=== PATIENT | male | born 1945 | race Caucasian/White ===

== ENCOUNTER 2018-06-16 06:16 | Inpatient (IN) | payer OTHER ==
[2018-06-16] MEDS ORDERED: FAMOTIDINE 20 MG TAB PO ONE (06:18)
[2018-06-16] MEDS ORDERED: ASPIRIN EC 325 MG TAB PO ONE ×2 (06:18→06:37)
[2018-06-16] MEDS ORDERED: DIAZEPAM 5 MG TAB PO ONE ×2 (06:18→06:37)
[2018-06-16] MEDS ORDERED: diphenhydrAMINE 25 MG CAP PO ONE (06:18)
[2018-06-16] MEDS ORDERED: NS 1,000 ML IV ONE (06:18)
[2018-06-16] MEDS ORDERED: FAMOTIDINE 20 MG/NACL 50 ML IV ONE (06:37)
[2018-06-16] MEDS ORDERED: methylPREDNISolone SOD SUCC 125 MG/2 ML VIAL IVP ONE (06:37)
[2018-06-16 06:58] LABS: PLATELET COUNT 166 10^3/uL (150-400)
[2018-06-16 07:06] LABS: INR 1.12 (0.83-1.16)
[2018-06-16] MEDS ORDERED: LIDOCAINE 1% 300 MG/30 ML SDV ONE (08:05)
[2018-06-16] MEDS ORDERED: fentaNYL 100 MCG/2 ML INJ ONE (08:06)
[2018-06-16] MEDS ORDERED: MIDAZOLAM 2 MG/2 ML VIAL ONE (08:06)
[2018-06-16] MEDS ORDERED: IOPAMIDOL (ISOVUE-370) 150 ML BTL IV ONE (08:06)
--- NOTE | 2018-06-16 08:15 | PDPROPOC ---
Sedation Plan of Care Sedation Plan of Care: vital signs stable, mental status noted, patient educated of risks, benefits, alternatives, patient can tolerate sedation ASA Classification: ASA 2 Planned drugs: fentanyl, midazolam Mallampati Score: Class 1 Mallampati Reference Image: Patient passed 3-3-2 rule?: Yes
--- NOTE | 2018-06-16 08:15 | PDHPUP ---
History & Physical Update H&P update statement: This history and physical update is based on an assessment of the patient which was completed after admission or registration (within 24 hours), but prior to the surgery/procedure. H&P update: H&P reviewed & patient examined, no change in patient's condition since H&P completed
[2018-06-16] MEDS ORDERED: VERAPAMIL 5 MG/2 ML VIAL ONE (08:16)
[2018-06-16] MEDS ORDERED: HEPARIN 10,000 UNIT/10 ML MDV (1,000 UNIT/ML) ONE (08:16)
[2018-06-16] MEDS ORDERED: ONDANSETRON 4 MG/2 ML VIAL ONE (08:24)
[2018-06-16] MEDS ORDERED: ADENOSINE 90 MG/30 ML VIAL IV ONE (08:55)
--- NOTE | 2018-06-16 09:21 | PDDXCAT ---
Diagnostic Cath Note - . Date: 06/16/18 Industrial Rehabilitation Consultant: Roque Avian Keeper: Roque Indication: Class I/II angina, intolerance to med therapy or failure to respond , other (ANGINAL EQUIVALENT. ct SCAN WITH cad) - Procedure Access: right wrist Procedure: left heart catheterization, coronary angiography, left ventriculogram - Materials Left Heart Cath size: 5F Left Heart Cath materials: JL3.5, pigtail, other ([place] 4) - Findings-Left Heart Catheterization LM: 65% distal LM LAD: Large vessel reaching to the apex. Unobstructed with mild luminal irregularities. LCX: Unobstructed RCA: Dominant. Tortuous. Ramus: Large EDP: 18 mmhg LVEF: 60 Wall motion: normal Complications: FORARM HEMATOMA, CONTROLLED WITH BLOOD PRESSURE CUFF. Estimated blood loss: <50ml Closure method: TR Band Assessment: Distal left main CAD. Indeterminant in some views. Normal LV systolic function. Plan: FFR of the Left main Intervention: Procedure : FFR of the left main. Therapeutic ACT was confirmed. Left main was cannulated with a 5 estonian JL 3.5 guide. A FFR wire was passed into the ramus intermedius. Standing FFR was .89. Injection of the coronary showed a drop in FFR to .86. Administration of adenosine at 140 ucg/kg/min showed a drop to .79 Conclusion: Flow limiting distal left main coronary artery disease. Films reviewed with Dr. Terry of surgery and Dr. Shirley. Recommend three vessel CABG.
[2018-06-16] MEDS ORDERED: MUPIROCIN 2% 22 GM OINT NS ONE (11:06)
--- NOTE | 2018-06-16 13:55 | PDCONSULT ---
Zumba Instructor Note: INDICATION FOR CTS CONSULTATION: Severe coronary artery disease including the left main REQUESTING PHYSICIAN FOR CONSULTATION: Dr. Nevarez HISTORY OF PRESENT ILLNESS: This is a 72M with known CAD who underwent elective LHC today with Dr. Nevarez which demonstrated flow limiting LM disease. He has been having worsening SOB at rest the past few weeks. Associated symptoms include fatigue and malaise. No over chest pain. He had a recent 3-week automobile trip where he developed unilateral ankle edema and pain. This has since resolved. No chest or vein surgery. 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 PHYSICAL EXAMINATION: GENERAL APPEARANCE: NAD, in bed HEENT: NCAT, MMM, neck supple, trachea midline, no mass RESPIRATORY: CTAB, no wheezes CARDIAC: s1s2, RRR, no m/r/g, no edema b/l, radial splint ABDOMEN: obese, soft, nontender SKIN: warm and dry NEURO: no gross defect, sensation intact PSYCH: answers questions appropriately, thoughts linear LABORATORY STUDIES: CBC, CMP, PT/INR, A1c reviewed in [facility] and unremarkable DIAGNOSTICS: [facility] 06/16 LM: 65% distal LM LAD: Large vessel reaching to the apex. Unobstructed with mild luminal irregularities. LCX: Unobstructed RCA: Dominant. Tortuous. Ramus: Large EDP: 18 mmhg LVEF: 60 TTE 06/16 - ordered, pending CUS 06/16 - no significant stenosis CXR 06/16 - WNL ASSESSMENT: Severe coronary artery disease including flow limiting distal LM disease Recent unilateral edema/swelling associated with immobility concerning for LLE DVT Hypertension Hyperlipidemia PLAN: Urgent myocardial revascularization with endoscopic vein harvesting 06/17/18 Risks, benefits, and alternatives discussed with patient/ Pre-ops placed, pending TTE, Doppler US LLE r/o chronic DVT
--- NOTE | 2018-06-16 16:09 | ECHO ---
[email or web address] [address] Main: [phone] Echocardiography Examination Transthoracic Name: SHANTA VIRAMONTES MR#: [id number] Study Date: 06/16/2018 Study Time: 03:20 PM Date of : 1945 Age: 72 year(s) Height: 190.5 cm (75 in.) Weight: 114.76 kg (253 lb.) BSA: 2.42 m2 Gender: Male Examination: Echo Contrast: Image Quality: Adequate Rhythm: Heart Rate: BP: 120 mmHg/78 mmHg Indication: Pre OP OHS TTE Procedure Staff Referring Physician: Grubber: Ashanti Toro [facility] Reading Physician: Miles López MD Requesting Provider: Ordering Physician: Charly Hood Indication: Pre OP OHS TTE Measurements Chambers AV/MV Label Value Normal Value Label Value Normal Value LVOTd 2 cm (1.9cm - 2.1cm) AV PGmax 10 mmHg LVOT VTI 18.8 cm (18cm - 22cm) AV PGmean 6 mmHg LVDd, 2D 4.8 cm (4.2cm - 5.9cm) AV Vmax 1.55 m/s LVDs, 2D 3 cm (2.1cm - 4cm) KATIE (VTI) 2.1 cm2 IVSd, 2D 1.4 cm (0.6cm - 1.1cm) MV E Vmax 0.64 m/s LVPWd, 2D 1.3 cm (0.6cm - 1cm) MV A Vmax 0.99 m/s LVEF, 2D 66 % (54% - 74%) MV E/A 0.65 LVOT PGmean 2 mmHg MV E/E' lateral 6.7 LVOT Vmean 0.68 m/s MV E/E' septal 10.9 (0.45 - 1.25) RVDd, 2D 3.7 cm (1.9cm - 3.8cm) MV DT 282 ms LA Volume, BP 34 ml (18ml - 58ml) MV E' septal 0.06 m/s LADs, 2D 3.3 cm (3cm - 4cm) MV PHT 0.1 s LAESV index, BP 14 ml/m2 MVA PHT 2.3 cm2 RA Area 14.9 cm2 MV E' lateral 0.09 m/s Additional Vessels MV E/E' mean 8.53 Label Value Normal Value MV PHT 95 ms AoAsc 3.2 cm MV E' mean 0.08 m/s AoRoot, 2D 3 cm (1.4cm - 2.6cm) TV/PV Label Value Normal Value Patient: SHANTA VIRAMONTES Study Date: 06/16/2018 Page 1 of 3 03:20 PM RA Pressure 5 mmHg RVSP 22 mmHg TR Pmax 17 mmHg TR Vmax 2.05 m/s PV PGmax 3 mmHg PV Vmax, Caliper 0.87 m/s (0.6m/s - 0.9m/s) Conclusions 1. The left ventricle is normal in size with mild concentric left ventricular hypertrophy. The ejection fraction is estimated at 55-60%. 2. The aortic valve is trileaflet. There is no aortic stenosis or insufficiency. 3. The mitral valve is normal in structure. There is trivial mitral regurgitation. 4. The pulmonary artery pressure estimate is within normal limits. 5. No old studies for comparison. Findings Left Ventricle: Left ventricle is normal in size. Normal global systolic left ventricular function. EF range is estimated at 55 % - 60 %. There is mild concentric left ventricular hypertrophy. Right Ventricle: Normal size right ventricle. Left Atrium: The left atrium is normal in size. Right Atrium: The right atrium is normal in size. Mitral Valve: Mitral valve appears structurally normal. Trivial mitral regurgitation. No mitral valve stenosis. Aortic Valve: Aortic leaflets are structurally normal. No significant aortic valve regurgitation. There is no aortic stenosis. Tricuspid Valve: Tricuspid valve leaflets are structurally normal. Trivial tricuspid regurgitation. No tricuspid valve stenosis. Right Ventricular systolic pressure is measured at 22 mmHg. Pulmonary artery pressure normal. Pulmonic Valve: Pulmonic valve not well visualized. Aorta: The aortic root size in 2D measures 3.0 cm. The ascending aorta measures 3.2 cm. Aorta Measurements AoRoot, 2D is 3.0 cm. Great Vessels: Subcostal not well visualized. Pericardium: A pericardial fat pad is present. No pericardial effusion. Exam Details Procedure Ordered: Echo Procedure Status: Routine study Image Quality: Adequate Facility Location: Bedside (No Signature Object) Patient: SHANTA VIRAMONTES Study Date: 06/16/2018 Page 2 of 3 03:20 PM Patient: SHANTA VIRAMONTES Study Date: 06/16/2018 Page 3 of 3 03:20 PM [id number]
--- NOTE | 2018-06-16 16:17 | CPEKG ---
Test Reason : OPEN Blood Pressure : / mmHG Vent. Rate : 057 BPM Atrial Rate : 057 BPM P-R Int : 173 ms QRS Dur : 100 ms QT Int : 426 ms P-R-T Axes : 004 131 008 degrees QTc Int : 415 ms Sinus rhythm Left posterior fascicular block Borderline T wave abnormalities Confirmed by Sue Mohan ([id number]) on 06/16/2018 4:17:45 PM Referred By: Peña Nevarez Confirmed By:Sue Mohan
--- NOTE | 2018-06-16 16:55 | PDMN ---
Medical Necessity Medical necessity: [facility] S390 CABG, 4 days: 72 yo s/p heart cath found to have severe CAD including flow limiting distal LM disease. Pt consents and urgent CABG scheduled, pt going to OR, being prepped. [facility] IP only.
[2018-06-16] MEDS ORDERED: CHLORHEXIDINE GLUC HIBICLENS 118 ML BTL TP SCH (21:00)
[2018-06-16] MEDS: MUPIROCIN 2% 1 APP/GM OINT *BID NS SCH (21:23)
[2018-06-17] MEDS ORDERED: CARDIOPLEGIC SOLUTION 1,052.8 ML PF ONE (07:00)
[2018-06-17] MEDS ORDERED: LIDOCAINE 1% 2 ML INJ ID PRN (07:00)
[2018-06-17] MEDS ORDERED: CITRATE DEXTROSE SOLN 500 ML BAG MISC ONE (07:00)
[2018-06-17] MEDS ORDERED: PHENYLEPHRINE HCL 50 MG in NS 250 ML IV ONE (07:00)
[2018-06-17] MEDS ORDERED: ceFAZolin 2 GM/DEXTROSE 100 ML IV ONE (07:00)
[2018-06-17] MEDS ORDERED: NS 1,000 ML IV ONE (07:00)
[2018-06-17] MEDS ORDERED: AMINOCAPROIC ACID 5 GM/20 ML VIAL IV ONE (07:00)
[2018-06-17] MEDS ORDERED: INSULIN REGULAR HUMAN 100 UNIT in NS 100 ML IV ONE (07:00)
[2018-06-17] MEDS ORDERED: MANNITOL 25% 12.5 GM/50 ML VIAL IVP ONE (07:00)
[2018-06-17] MEDS ORDERED: VERAPAMIL 5 MG, NITROGLYCERIN 2.5 MG, HEPARIN 500 UNIT, SODIUM BICARBONATE 0.2 MEQ in L... MISC ONE (07:00)
[2018-06-17] MEDS ORDERED: NOREPINEPHRINE BITARTRATE 16 MG in NS 250 ML IV ONE (07:00)
[2018-06-17] MEDS ORDERED: PROTAMINE SULFATE 50 MG/5 ML VIAL IVP ONE (07:12)
[2018-06-17] MEDS ORDERED: DOPamine/DEXTROSE 400 MG/250 ML BAG IV ONE (07:13)
[2018-06-17] MEDS ORDERED: HEPARIN 10,000 UNIT/10 ML MDV (1,000 UNIT/ML) ONE ×2 (07:13→07:15)
[2018-06-17] MEDS ORDERED: niCARdipine/NACL/200 ML BAG IV ONE (07:13)
[2018-06-17] MEDS ORDERED: NA BICARBONATE 50 MEQ/50 ML VIAL ONE (07:13)
[2018-06-17] MEDS ORDERED: CALCIUM CHLORIDE 1 GM/10 ML INJ ONE ×2 (07:13→07:14)
[2018-06-17] MEDS ORDERED: MILRINONE/DEXTROSE/100 ML BAG IV ONE (07:13)
[2018-06-17] MEDS ORDERED: AMIODARONE HCL 150 MG/3 ML VIAL ONE ×2 (07:13→07:15)
[2018-06-17] MEDS ORDERED: AMINOCAPROIC ACID 5 GM/20 ML VIAL ONE ×2 (07:13→07:14)
[2018-06-17] MEDS ORDERED: SODIUM BICARBONATE 50 MEQ/50 ML SYR ONE (07:14)
[2018-06-17] MEDS ORDERED: ADENOSINE 6 MG/2 ML VIAL ONE (07:14)
[2018-06-17] MEDS ORDERED: NITROGLYCERIN/D5W 50 MG/250 ML BOTTLE IV ONE (07:14)
[2018-06-17] MEDS ORDERED: ALBUMIN 5% 250 ML BOTTLE IV ONE ×3 (07:14→23:33)
[2018-06-17] MEDS ORDERED: ceFAZolin 1 GM VIAL ONE ×2 (07:14→12:24)
[2018-06-17] MEDS ORDERED: MAGNESIUM SULFATE 1 GM/2 ML VIAL ONE (07:15)
[2018-06-17] MEDS ORDERED: LIDOCAINE 2% 100 MG/5 ML SYR ONE (07:15)
[2018-06-17] MEDS ORDERED: CITRATE DEXTROSE SOLN 500 ML BAG ONE (07:15)
[2018-06-17] MEDS ORDERED: methylPREDNISolone SOD SUCC 1 GM/8 ML VIAL ONE (07:15)
[2018-06-17] MEDS ORDERED: MINERAL OIL 10 ML VIAL ONE (07:41)
[2018-06-17] MEDS ORDERED: PAPAVERINE HCL 60 MG/2 ML SDV ONE (07:41)
[2018-06-17] MEDS ORDERED: VERAPAMIL 5 MG/2 ML VIAL ONE (07:41)
[2018-06-17] MEDS: MUPIROCIN 2% 1 APP/GM OINT *BID NS SCH (09:40)
[2018-06-17] MEDS: ASPIRIN 81 MG CHEWABLE TAB PO SCH (09:40)
[2018-06-17] MEDS ORDERED: EPINEPHrine 1 MG/ML INJ ONE (10:50)
[2018-06-17] MEDS ORDERED: PHENYLEPHRINE 10 MG/ML SDV ONE (10:51)
[2018-06-17] MEDS ORDERED: SUCCINYLCHOLINE CHLORIDE 200 MG/10 ML SYR IVP ONE (10:53)
[2018-06-17] MEDS ORDERED: ROCURONIUM 100 MG/10 ML VIAL ONE (10:53)
[2018-06-17] MEDS ORDERED: LABETALOL HCL 5 MG/ML 20 ML MDV ONE (10:56)
--- NOTE | 2018-06-17 11:09 | PDANEPAE ---
ANE History of Present Illness cab ANE Past Medical History - Cardiovascular History Hx Hypertension: Yes Hx Arrhythmias: No Hx Chest Pain: No Hx Coronary Artery / Peripheral Vascular Disease: Yes Hx CHF / Valvular Disease: No Hx Palpitations: No - Pulmonary History Hx COPD: No Hx Asthma/Reactive Airway Disease: No Hx Recent Upper Respiratory Infection: No Hx Oxygen in Use at Home: No Hx Sleep Apnea: No Sleep Apnea Screening Result - Last Documented: Positive Pulmonary History Comment: SO notes some snoring, possible brief pauses - Neurologic History Hx Cerebrovascular Accident: No Hx Seizures: No Hx Dementia: No - Endocrine History Hx Diabetes: No Hypothyroid: No Hyperthyroid: No Obesity: mild - Renal History Hx Renal Disorders: No - Liver History Hx Hepatic Disorders: No ANE Review of Systems Review of Systems: - Exercise capacity Exercise capacity: <4 METS ANE Patient History - Allergies Allergies/Adverse Reactions: Iodine and Iodide Containing Produc Allergy (Verified 06/16/18 06:31) - Home Medications Home Medications: Aspirin [Aspirin 81mg (*)] 81 mg PO DAILY 06/13/18 [Last Taken 06/15/18 20:00] Cholecalciferol Vit D3 [Vitamin D3 (*)] 1,000 units PO DAILY 06/13/18 [Last Taken 06/14/18 20:00] Cyanocobalamin [Vitamin B12 (*)] 1,000 mcg PO DAILY 06/13/18 [Last Taken 20:00] Herbals/Supplements -Info Only 1 ea PO DAILY 06/13/18 [Last Taken Unknown] Niacin [Niacin 500 mg (*)] 500 mg PO HS 06/13/18 [Last Taken 06/15/18 20:00] Richardson-3 Fatty Acids [Fish Oil 1000 mg (*)] 1,000 mg PO DAILY 06/13/18 [Last Taken 06/15/18 20:00] - NPO status NPO Status: no food or drink >8 hours NPO Since - Liquids (Date): 06/17/18 NPO Since - Liquids (Time): 00:00 NPO Since - Solids (Date): 06/17/18 NPO Since - Solids (Time): 00:00 - Smoking Hx Smoking Status: Never smoked ANE Labs/Vital Signs - Labs Result Diagrams: 06/17/18 03:40 06/17/18 03:40 - Vital Signs Blood Pressure: 118/72 Heart Rate: 80 Respiratory Rate: 18 O2 Sat (%): 91 Height: 190.5 cm Weight: 112.8 kg ANE Physical Exam - Airway Mallampati Score: Class 2 Mouth exam: normal dental/mouth exam, [place] - Pulmonary Pulmonary: no respiratory distress - Cardiovascular Cardiovascular: regular rate and rhythym - ASA Status ASA Status: III ANE Anesthesia Plan Anesthesia Plan: general endotracheal anesthesia Lines/Monitors: arterial line, central line
[2018-06-17] MEDS ORDERED: LIDOCAINE 2% 5 ML SDV ONE (11:40)
[2018-06-17] MEDS ORDERED: MIDAZOLAM 2 MG/2 ML VIAL ONE (11:40)
[2018-06-17] MEDS ORDERED: fentaNYL 250 MCG/5 ML INJ ONE ×2 (11:40)
[2018-06-17] MEDS ORDERED: PROPOFOL 200 MG/20 ML VIAL ONE (11:40)
[2018-06-17] MEDS ORDERED: MIDAZOLAM 2 MG/2 ML VIAL IVP ONE (11:43)
[2018-06-17] MEDS ORDERED: CEFAZOLIN 2 GM/DEXTROSE/100 ML BAG IV ONE (12:26)
[2018-06-17] MEDS ORDERED: GLYCOPYRROLATE 0.2 MG/1 ML VIAL ONE ×2 (13:01→13:02)
[2018-06-17] MEDS ORDERED: DEXMEDETOMIDINE HCL 400 MCG in NS 100 ML IV ONE (15:30)
[2018-06-17] MEDS ORDERED: SUGAMMADEX SODIUM 200 MG/2 ML VIAL IVP ONE (15:53)
[2018-06-17] MEDS ORDERED: SODIUM CL NASAL 45 ML BTL EACHNARE PRN (16:00)
[2018-06-17] MEDS ORDERED: D50W 25 GM/50 ML SYR IVP PRN (16:00)
[2018-06-17] MEDS ORDERED: POTASSIUM Cl (KCl) 50 ML IV PRN (16:00)
[2018-06-17] MEDS ORDERED: INSULIN REGULAR HUMAN 100 UNIT in NS 100 ML IV SCH (16:00)
[2018-06-17] MEDS ORDERED: CEPACOL LOZENGE PO PRN (16:00)
[2018-06-17] MEDS ORDERED: METOCLOPRAMIDE 10 MG/2 ML VIAL IVP PRN (16:00)
[2018-06-17] MEDS ORDERED: MAGNESIUM HYDROXIDE 30 ML UDCUP PO PRN (16:00)
[2018-06-17] MEDS ORDERED: ACETAMINOPHEN 650 MG SUPP PR PRN (16:00)
[2018-06-17] MEDS ORDERED: BISACODYL 10 MG SUPP PR PRN (16:00)
[2018-06-17] MEDS ORDERED: LACTULOSE 20 GM/30 ML UDCUP PO PRN (16:00)
[2018-06-17] MEDS ORDERED: MEPERIDINE 25 MG/0.5 ML AMP IVP PRN (16:00)
[2018-06-17] MEDS ORDERED: NS 1,000 ML IV SCH (16:00)
[2018-06-17] MEDS ORDERED: ONDANSETRON DISINTEGRATING 4 MG TAB PO PRN (16:00)
[2018-06-17] MEDS ORDERED: niCARdipine/NACL 200 ML IV SCH (16:00)
[2018-06-17] MEDS ORDERED: POLYETHYLENE GLYCOL 3350 17 GM PKT PO PRN (16:00)
[2018-06-17] MEDS ORDERED: ONDANSETRON 4 MG/2 ML VIAL IVP PRN (16:00)
[2018-06-17] MEDS: fentaNYL 100 MCG/2 ML INJ IVP PRN ×4 (16:37→23:41)
--- NOTE | 2018-06-17 16:48 | GCON ---
[f rep st] CONSULTATION DISTRIBUTION CLERK CONSULTATION REFERRING PHYSICIAN: Anson Terry DO HISTORY OF PRESENT ILLNESS: I was asked to see the patient in consultation by Dr. Anson Terry. He i s examined postoperatively after receiving coronary bypass graft. The patient is a 72-year-old white male with a past medical history of coronary artery disease. He recently underwent a left heart cat heterization, which demonstrated left main disease. He was taken the operating room by Dr. Anson jefferson and returned to the intensive care unit off mechanical ventilation. He is currently awake, moanin g in pain. Surgery was apparently complicated by cardiac arrhythmias. He is resting somewhat comfor tably. He does not appear to be breathless. REVIEW OF SYSTEMS: Ten-point review of systems was attempted, but unable to be performed, secondary to sedation. PAST MEDICAL HISTORY: Significant for coronary artery disease. PAST SURGICAL HISTORY: He has had cholecystectomy, biceps tendon repair and rotator cuff. FAMILY HISTORY: Significant coronary artery disease. SOCIAL HISTORY: Lifelong nonsmoker. He drinks approximately 10 beers per week. He is retired [employer]. He is , has excellent family support. MEDICATIONS: At home include aspirin, vitamin D3, niacin, and fish oil. PHYSICAL EXAM: VITAL SIGNS: Blood pressure 118/72, pulse 80, respiration 18, temperature 36.6, oxyg en saturation 91%. GENERAL: He is a moderately overweight elderly white male who is resting comfort ably postoperatively. HEENT: Eyes are PERRLA, EOMI. Throat exam is deferred, secondary to suppleme ntal oxygen. NECK: Supple. No cervical adenopathy. HEART: Regular rate and rhythm without murmur s, rubs, gallops. LUNGS: Diminished breath sounds, but no wheeze. ABDOMEN: Soft, nontender. Sury l sounds are present in all 4 quadrants. EXTREMITIES: No clubbing, cyanosis, or edema. LABORATORIES: White count is 15.2, hemoglobin 16, hematocrit 49, platelet count is 166. Sodium 137, potassium 5.0, chloride 105, CO2 23, BUN 21, creatinine 1, glucose is 139. IMPRESSION: 1. Coronary artery disease. 2. Obesity. 3. Status post coronary artery bypass graft. 4. Cardiac arrhythmias. 5. Possible obstructive sleep apnea. RECOMMENDATIONS: 1. Wean FiO2 as tolerated. 2. DVT and PE prophylaxis, holding anticoagulation for now. 3. Stress ulcer prophylaxis. 4. Close cardiovascular monitoring. 5. Aggressive blood sugar control. /[id number]/MODL
--- NOTE | 2018-06-17 16:58 | GOP ---
[f rep st] OPERATIVE REPORT DATE OF OPERATION: 06/17/2018 SURGEON: Anson Terry DO CHIEF ENVIRONMENTAL COMMITMENT OFFICER: Sarbjit Lopez PA-C. ANESTHESIOLOGIST: Bk Acosta MD. PREOPERATIVE DIAGNOSIS: Symptomatic left main stenosis. POSTOPERATIVE DIAGNOSIS: Symptomatic left main stenosis. PROCEDURE PERFORMED: 1. Coronary bypass grafting x2 with left internal mammary artery to the left anterior descending and saphenous vein graft to the ramus branch. 2. Atrial clip to the left atrial appendage. 3. Endoscopic vein harvest. FINDINGS: DESCRIPTION OF PROCEDURE: The patient was consented for surgery, brought to the operating room, intu bated, monitoring lines were placed. He was prepped and draped in sterile classical manner. Sternot alanis me was performed. The vein was harvested as was the mammary. Conduits were excellent. He was h eparinized and cannulated. Bypass was begun. A cardioplegic arrest was obtained with antegrade card ioplegia, topical hypothermia and systemic cooling. The ramus was identified. It was a 2.6 mm good quality vessel. The vein was excellent and was anastomosed end-to-side and brought off the ascending aorta with a cross-clamp on with 5-0 Prolene. We then spent some time looking at the posterolateral circumflex which was quite small after coming out of the AV groove less than a millimeter and felt n ot to be suitable for bypass grafting. We then placed an atrial clip across the base of the left atr ial appendage and then grafted the mid LAD which was a 2.6 mm good quality vessel with an excellent m ammary. It was tacked to the epicardium. The cross-clamp was removed with suction on the ascending aortic vent. Spontaneous cardiac activity was noted to resume. The patient was rewarmed and weaned from bypass. Heparin was reversed with protamine. Cannula was removed and oversewn. Two ventricula r pacing wires, 1 left pleural and 1 mediastinal drain were placed. The lower pericardium was closed . The upper portion was under tension, and we therefore did not close the pericardium. We had resec delaney the thymic fat because of its massive amount obstructing surgery due to his obesity. Sternum was closed in standard fashion. Patient was returned to ICU in stable condition. /[id number]/MODL
[2018-06-17] MEDS: ALBUMIN 5% 250 ML IV PRN ×2 (17:20→18:35)
[2018-06-17] MEDS: MUPIROCIN 2% 22 GM OINT NS SCH (20:08)
[2018-06-17] MEDS: SENNOSIDES/DOCUSATE SODIUM TAB PO SCH (20:10)
[2018-06-17] MEDS: ceFAZolin 2 GM/DEXTROSE 100 ML IV SCH (21:49)
[2018-06-18] MEDS: HYDROCODONE/APAP 5/325 TAB PO PRN ×5 (00:52→20:43)
[2018-06-18] MEDS: fentaNYL 100 MCG/2 ML INJ IVP PRN ×3 (02:02→08:26)
--- NOTE | 2018-06-18 05:51 | CPEKG ---
Test Reason : OPEN Blood Pressure : / mmHG Vent. Rate : 066 BPM Atrial Rate : 066 BPM P-R Int : 229 ms QRS Dur : 107 ms QT Int : 420 ms P-R-T Axes : 046 114 005 degrees QTc Int : 441 ms Sinus rhythm Prolonged OH interval Right axis deviation Confirmed by Sue Mohan ([id number]) on 06/18/2018 5:50:11 AM Referred By: Anson Terry Confirmed By:Sue Mohan
[2018-06-18 05:52] LABS: PLATELET COUNT 117 10^3/uL (150-400)
[2018-06-18] MEDS: ceFAZolin 2 GM/DEXTROSE 100 ML IV SCH ×3 (06:07→21:40)
[2018-06-18] MEDS: HEPARIN 5,000 UNIT/0.5 ML INJ SC SCH ×3 (06:18→21:40)
--- NOTE | 2018-06-18 07:44 | SOAPPROG ---
SOAP Progress Note Assessment/Plan: POD #1: urgent CABGx2 (MCGEE-LAD, SVG-ramus), AtriClip IMCHA, EVH L thigh Severe LM CAD s/p CABGx2 - CTs to bulb, FC/AL out - ASA/statin for secondary prevention - BB on hold until evaluated by EP for bradycardia Acute post-op blood loss anemia - Stable w/o the need for tranfusion Pre-op bradycardia - EP to evaluate - PW set to VVI 50 DVT prophylaxis - SCDs/heparin SQ Disposition - PCU Subjective: Denies pain/SOB. Objective: Vital Signs Temp Pulse Resp BP Pulse Ox 36 C 92 17 125/73 H 95 06/18/18 00:00 06/18/18 07:00 06/18/18 07:00 06/18/18 07:00 06/18/18 07:00 Laboratory Results 06/18/18 05:38 06/18/18 05:38 06/17/18 06/18/18 06/19/18 05:59 05:59 05:59 Intake Total 450 1839 Output Total 1515 Balance 450 324 PT 14.0 SEC (12.0-15.0) 06/16/18 06:45 INR 1.12 (0.83-1.16) 06/16/18 06:45 Physical Exam - Physical Exam General Appearance: WD/WN, alert, no apparent distress EENT: No scleral icterus (R), No scleral icterus (L) Neck: normal inspection Respiratory: No respiratory distress Cardiac/Chest: regular rate, rhythm Abdomen: non-tender, soft, No distended Skin: normal color, warm/dry Extremities: No pedal edema Neuro/Psych: no motor/sensory deficits, alert, normal mood/affect, oriented x 3 ICD10 Worksheet Patient Problems: Problems Problem Status Onset Acute blood loss as cause of postoperative anemia Acute Left main coronary artery disease Acute S/P CABG x 2 Acute S/P left atrial appendage ligation Acute
[2018-06-18] MEDS: MUPIROCIN 2% 22 GM OINT NS SCH ×2 (08:30→21:38)
[2018-06-18] MEDS: PANTOPRAZOLE SODIUM 40 MG TAB PO SCH (08:30)
[2018-06-18] MEDS: SENNOSIDES/DOCUSATE SODIUM TAB PO SCH ×2 (08:30→20:43)
[2018-06-18] MEDS: ASPIRIN 81 MG CHEWABLE TAB PO SCH (08:30)
--- NOTE | 2018-06-18 09:32 | PDINTPN ---
3Rd Grade Reading Teacher Progress Note Assessment/Plan: Assessment/plan: * Coronary disease * Status post coronary bypass graft * Pain-well controlled * Respiratory-stable off mechanical ventilation * Blood sugar-well controlled. Continue aggressive treatment * VT prophylaxis-hold anticoagulation for now * Stress ulcer prophylaxis * PT/OT * Disposition-likely transfer to PCU later today Subjective: Sitting up in chair. Resting comfortably. Patient reasonably well controlled. Objective: Vital Signs Temp Pulse Resp BP Pulse Ox 36.9 C 92 18 114/84 H 94 06/18/18 08:00 06/18/18 09:00 06/18/18 09:00 06/18/18 09:00 06/18/18 09:00 Laboratory Results 06/18/18 05:38 06/18/18 05:38 06/17/18 06/18/18 06/19/18 05:59 05:59 05:59 Intake Total 450 1839 Output Total 1515 210 Balance 450 324 -210 PT 14.0 SEC (12.0-15.0) 06/16/18 06:45 INR 1.12 (0.83-1.16) 06/16/18 06:45 Chest [id number] by myself. Central line in good position. Cardiomegaly is present. Elevation of left hemidiaphragm is present. - Time Spent With Patient Time Spent With Patient: 35 min of time spent with patient, over 1/2 involved with coordination of care counseling. Case discussed with Nursing and cardiothoracic surgery Physical Exam - Physical Exam General Appearance: alert, no apparent distress EENT: PERRL/EOMI Neck: non-tender, supple Respiratory: chest non-tender, lungs clear, normal breath sounds Cardiac/Chest: normal peripheral pulses, regular rate, rhythm Abdomen: normal bowel sounds, non-tender, soft Male Genitalia: deferred Rectal: deferred Skin: normal color, warm/dry Extremities: non-tender, normal inspection Neuro/Psych: no motor/sensory deficits, alert, normal mood/affect, oriented x 3 ICD10 Worksheet Patient Problems: Problems Problem Status Onset Acute blood loss as cause of postoperative anemia Acute Left main coronary artery disease Acute S/P CABG x 2 Acute S/P left atrial appendage ligation Acute
[2018-06-18] MEDS: traMADol 50 MG TAB PO PRN ×2 (11:59→17:18)
--- NOTE | 2018-06-18 13:10 | ASMTCMCOM ---
CM Note CM Note Notes: Pt is a 72 y/o man that underwent a CABG x2. PT has cleared pt to d/c home with outpatient rehab follow up. Pt will most likely d/c without any needs. CM to follow direction and recommendations of Dr. Terry's team. CM available for changes. Plan: Independent Date Signed: 06/18/2018 01:09 PM Electronically Signed By:HARJINDER Perkins
--- NOTE | 2018-06-18 17:35 | PDCARPN ---
<Alexis Ruth - Last Filed: 06/18/18 17:29> Cardiology Progress Note Chief Complaint: 10-15 second pause prior to CABG yesterday Assessment/Plan: Assessment: 1. 10-15 seconds of asystole immediately prior to CABG yesterday. No history of syncope or pre-syncope. Long-standing history of bradycardia without evidence of chronotropic incompetence 2. CAD s/p CABG yesterday Plan: We had a complex discussion regarding options for further evaluation and/or management of pre-operative asystole, including watchful waiting vs. monitoring with a Zio monitor vs. LINQ implantation vs. implant of a permanent pacemaker ( traditional vs. Micra leadless PPM). Given the fact that he has never had any history of syncope or pre-syncope, he would like to proceed with implant of a LINQ monitor tomorrow with Dr. Trujillo. Recommend holding off on administration of beta blockers at this time. 06/18/18 17:35 Reviewed/Discussed With: multidisciplinary team Time Spent with Patient: greater than 35 minutes Time Spent with Patient: Greater than 35 minutes spent on this patients care, greater than 50% of time spent counseling, educating, and coordinating care regarding the above mentioned plan. Objective: Vital Signs (8 Hrs) Temp Pulse Resp BP Pulse Ox 06/18/18 14:57 36.7 C 94 14 126/78 H 92 06/18/18 12:37 36.7 C 93 15 137/88 H 93 06/18/18 10:00 95 20 115/77 92 Intake/Output (24 Hrs) 06/17/18 06/18/18 06/19/18 05:59 05:59 05:59 Intake Total 450 1839 943.7 Output Total 1515 590 Balance 450 324 353.7 Intake: Oral (ml) 450 500 710 IV Intake (ml) 455 IV Infused (ml) 884 233.7 Albumin 5% 250 ml @ 100 500 mls/hr IV PRN PRN Rx#: [id number] Dexmedetomidine HCl 400 24 mcg In Ns 100 ml @ Per Protocol IV ONCALL ONE Rx #:[id number] Insulin Regular Human 100 22 6.7 unit In Ns 100 ml @ Per Protocol IV CONT ALL Rx#: [id number] Ns 1,000 ml @ 25 mls/hr 338 127 IV CONT ALL Rx#: [id number] ceFAZolin 2 GM/DEXTROSE 100 100 ml @ 200 mls/hr IV Q8HRS ALL Rx#:[id number] Output: Urine (ml) 975 225 Catheter 975 125 Toilet 100 Chest Tube Output (ml) 540 365 Location 1 540 245 Location 2 120 Other: Weight 112.8 kg 112.8 kg 114 kg Number of Voids Toilet 1 1 Result Diagrams: 06/18/18 05:38 06/18/18 11:55 Telemetry: NSR - Physical Exam Constitutional: WDWN, healthy appearing, no apparent distress Ears, Nose, Mouth, Throat: moist mucous membranes, no oral ulcers, no thrush Neurologic: AAOx3, CN II-XII grossly intact Psychiatric: cooperative, interactive, following commands, not anxious ICD10 Worksheet Patient Problems: Problems Problem Status Onset Acute blood loss as cause of postoperative anemia Acute Left main coronary artery disease Acute S/P CABG x 2 Acute S/P left atrial appendage ligation Acute <Marcial Lucas - Last Filed: 06/18/18 20:37> Cardiology Progress Note Assessment/Plan: Addendum - pt seen and examined with VB, personally performed HPI ROS Exam. Agree with plan. LINQ tomorrow with my partner Dr. Trujillo 06/18/18 20:37 Objective: Vital Signs (8 Hrs) Temp Pulse Resp BP Pulse Ox 06/18/18 19:03 36.8 C 100 19 126/90 H 92 06/18/18 14:57 36.7 C 94 14 126/78 H 92 Intake/Output (24 Hrs) 06/17/18 06/18/18 06/19/18 11:59 11:59 11:59 Intake Total 450 2682.7 220 Output Total 1865 620 Balance 450 817.7 -400 Intake: Oral (ml) 450 1210 120 IV Intake (ml) 455 IV Infused (ml) 1017.7 100 Albumin 5% 250 ml @ 100 500 mls/hr IV PRN PRN Rx#: [id number] Dexmedetomidine HCl 400 24 mcg In Ns 100 ml @ Per Protocol IV ONCALL ONE Rx #:[id number] Insulin Regular Human 100 28.7 unit In Ns 100 ml @ Per Protocol IV CONT ALL Rx#: [id number] Ns 1,000 ml @ 25 mls/hr 465 IV CONT [facility] Rx#: [id number] ceFAZolin 2 GM/DEXTROSE 100 100 ml @ 200 mls/hr IV Q8HRS [facility] Rx#:[id number] Output: Urine (ml) 1100 275 Catheter 1100 Toilet 200 Urinal 75 Chest Tube Output (ml) 765 345 Location 1 685 240 Location 2 80 105 Other: Weight 112.8 kg 114 kg Number of Voids Toilet 1 1 Result Diagrams: 06/18/18 05:38 06/18/18 18:20
[2018-06-18] MEDS ORDERED: oxyCODONE IR 5 MG TAB PO PRN (18:00)
[2018-06-19] MEDS: traMADol 50 MG TAB PO PRN ×4 (00:47→21:53)
[2018-06-19] MEDS: HYDROCODONE/APAP 5/325 TAB PO PRN (04:24)
[2018-06-19] MEDS: PANTOPRAZOLE SODIUM 40 MG TAB PO SCH (06:42)
[2018-06-19] MEDS: HEPARIN 5,000 UNIT/0.5 ML INJ SC SCH ×3 (06:43→21:05)
[2018-06-19] MEDS: ceFAZolin 2 GM/DEXTROSE 100 ML IV SCH (06:44)
[2018-06-19 07:09] LABS: PLATELET COUNT 117 10^3/uL (150-400)
[2018-06-19] MEDS ORDERED: BISACODYL 10 MG SUPP PR ONE (07:56)
--- NOTE | 2018-06-19 08:11 | SOAPPROG ---
SOAP Progress Note Assessment/Plan: POD #2: urgent CABGx2 (MCGEE-LAD, SVG-ramus), AtriClip MICHA, EVH L thigh Severe LM CAD s/p CABGx2 - CTs output trending down; ?left pleural tube but effusion on CXR - ASA/niacin for secondary prevention; not interested in statin - agreed to d/w tearoom host at later time - BB on hold by EP for bradycardia Abdominal distension/pain -x1 suppository then mag citrate if ineffective -avoid [place] Left pleural effusion -appears slightly increased from yesterday -repeat CXR tomorrow, may need IR thoracentesis Acute post-op blood loss anemia - Stable w/o the need for transfusion Pre-op bradycardia - PW set to VVI 50 - LINQ today per Dr. Trujillo DVT prophylaxis - SCDs/heparin SQ PTOT - rec home w o/p rehab Dispo: -anticipate dc Saturday/Saturday Subjective: Rough night. Objective: Vital Signs Temp Pulse Resp BP Pulse Ox 37.2 C 94 18 138/91 H 94 06/19/18 03:06 06/19/18 03:06 06/19/18 03:06 06/19/18 03:06 06/19/18 03:06 Laboratory Results 06/19/18 06:50 06/19/18 06:50 06/18/18 06/19/18 06/20/18 05:59 05:59 05:59 Intake Total 1839 1838.7 Output Total 1515 1435 Balance 324 403.7 PT 14.0 SEC (12.0-15.0) 06/16/18 06:45 INR 1.12 (0.83-1.16) 06/16/18 06:45 - Physical Exam General Appearance: WD/WN, alert, mild distress EENT: No scleral icterus (R), No scleral icterus (L) Neck: normal inspection Respiratory: splinting, left pleural effusion on CXR Cardiac/Chest: regular rate, rhythm Abdomen: non-tender, soft, distended Skin: normal color, warm/dry Extremities: No pedal edema Neuro/Psych: no motor/sensory deficits, alert, normal mood/affect, oriented x 3 ICD10 Worksheet Patient Problems: Problems Problem Status Onset Acute blood loss as cause of postoperative anemia Acute Left main coronary artery disease Acute S/P CABG x 2 Acute S/P left atrial appendage ligation Acute
[2018-06-19] MEDS: SENNOSIDES/DOCUSATE SODIUM TAB PO SCH ×2 (08:58→21:06)
[2018-06-19] MEDS: ASPIRIN 81 MG CHEWABLE TAB PO SCH (08:58)
[2018-06-19] MEDS: MUPIROCIN 2% 22 GM OINT NS SCH (09:07)
[2018-06-19] MEDS ORDERED: LIDOCAINE 1% 300 MG/30 ML SDV ONE (12:05)
--- NOTE | 2018-06-19 12:06 | PDHPUP ---
History & Physical Update H&P update statement: This history and physical update is based on an assessment of the patient which was completed after admission or registration (within 24 hours), but prior to the surgery/procedure. H&P update: H&P reviewed & patient examined (ILR implant for workup of sinus pause in the context of anesthesia for CABG)
[2018-06-19] MEDS ORDERED: LIDOCAINE 1% 300 MG/30 ML SDV SC ONE (13:03)
[2018-06-19] MEDS ORDERED: MAGNESIUM CITRATE 300 ML BOTTLE PO ONE (13:15)
--- NOTE | 2018-06-19 14:32 | EPPROC ---
Electrophysiology Procedure Note: Date: 06/19/2018 Military Logistics Specialist: Ankit Trujillo MD Procedures: Implant cardiac loop recorder -[id number] Indications: 72-year-old male, recovering from open heart surgery; during anesthesia induction, a greater than 10 sec sinus pause was observed. The patient has never experienced syncope or presyncope. After discussion of management options, he has declined pacemaker implantation, and thus loop recorder implant is recommended. Techniques: Following informed consent, the patient was brought to the procedure area. The anterior chest was prepped and draped in usual sterile fashion. 1% lidocaine was infiltrated at the left sternal border, 5th intercostal space. A skin incision was made in this location, and the recorder was injected into the subcutaneous tissues, parallel to the long axis of the heart. The incision was closed with a single resorbable suture and dressed with Steri-Strips. The patient tolerated the procedure well. Recorder: [employer] [id number], SN [id number], implant 06/19/18 EBL: Minimal Complications: None Assessment: Successful implantation of cardiac loop recorder Plan: Keep incision dry for 3 days Ongoing monitoring for cardiac Josr arrhythmias Patient Problems: Problems Problem Status Onset Acute blood loss as cause of postoperative anemia Acute Left main coronary artery disease Acute S/P CABG x 2 Acute S/P left atrial appendage ligation Acute
[2018-06-20] MEDS: HEPARIN 5,000 UNIT/0.5 ML INJ SC SCH ×3 (06:03→21:22)
--- NOTE | 2018-06-20 07:43 | SOAPPROG ---
SOAP Progress Note Assessment/Plan: POD #3: urgent CABGx2 (MCGEE-LAD, SVG-ramus), AtriClip MICHA, EVH L thigh Severe LM CAD s/p CABGx2 - CTs output trending down; ?left pleural tube but effusion on CXR - check PA/LA - ASA/niacin for secondary prevention; not interested in statin - agreed to d/w lavatory attendant at later time - BB on hold by EP for bradycardia Abdominal distension/pain -x2 BM yesterday, still feels distended - may be edema - plan for lasix -avoid [place] Post-op atrial fibrillation -asx overnight, resolved spontaneously after 1 hr -avoid antiarrhythmic/BB -if recurrent, consider DOAC Left pleural effusion -pending PA/LAT Acute post-op blood loss anemia - Stable w/o the need for transfusion Pre-op bradycardia - PW set to VVI 50 - LINQ yesterday per Dr. Trujillo DVT prophylaxis - SCDs/heparin SQ PTOT - rec home w o/p rehab Dispo: -anticipate dc Saturday -plan to dc chest tubs if PA/LAT ok -lasix 20 mg IV once -schedule miralax -will d/w EP re: wrap & cap -check K+/Mag as potential cause of afib overnight Subjective: Still feels distended. No pain. Objective: Vital Signs Temp Pulse Resp BP Pulse Ox 36.8 C 92 18 132/75 H 93 06/20/18 07:42 06/20/18 07:42 06/20/18 07:42 06/20/18 07:42 06/20/18 07:42 Laboratory Results 06/19/18 06:50 06/19/18 06:50 06/19/18 06/20/18 06/21/18 05:59 05:59 05:59 Intake Total 1838.7 1070 Output Total 1435 1120 100 Balance 403.7 -50 -100 PT 14.0 SEC (12.0-15.0) 06/16/18 06:45 INR 1.12 (0.83-1.16) 06/16/18 06:45 - Physical Exam General Appearance: WD/WN, alert EENT: No scleral icterus (R), No scleral icterus (L) Neck: normal inspection Respiratory: off oxygen, no wheezes Cardiac/Chest: regular rate, rhythm 90's (tele overnight afib) Abdomen: non-tender, soft, mildly distended Skin: normal color, warm/dry Extremities: trace pedal edema Neuro/Psych: no motor/sensory deficits, alert, normal mood/affect, oriented x 3 ICD10 Worksheet Patient Problems: Problems Problem Status Onset Acute blood loss as cause of postoperative anemia Acute Left main coronary artery disease Acute S/P CABG x 2 Acute S/P left atrial appendage ligation Acute
[2018-06-20] MEDS: traMADol 50 MG TAB PO PRN ×2 (08:41→09:25)
[2018-06-20] MEDS: SENNOSIDES/DOCUSATE SODIUM TAB PO SCH ×2 (08:41→21:21)
[2018-06-20] MEDS: ASPIRIN 81 MG CHEWABLE TAB PO SCH (08:41)
[2018-06-20] MEDS: PANTOPRAZOLE SODIUM 40 MG TAB PO SCH (08:42)
[2018-06-20] MEDS ORDERED: FUROSEMIDE 20 MG/2 ML VIAL IVP ONE (09:03)
[2018-06-20] MEDS: POLYETHYLENE GLYCOL 3350 17 GM PKT PO SCH (09:26)
[2018-06-20] MEDS ORDERED: BISACODYL 10 MG SUPP PR ONE (12:15)
--- NOTE | 2018-06-20 12:33 | ASMTCMCOM ---
CM Note CM Note Notes: 06/20/2018 Case Management Note Discussed w/RN and reviewed chart. PT note indicates cardiac outpatient rehab. Anticipating Saturday discharge. Case Management d/c poc: independent with follow up as directed. Case Management available if needs change. Date Signed: 06/20/2018 12:32 PM Electronically Signed By:Aparna Trinidad RN
[2018-06-20] MEDS: ACETAMINOPHEN 325 MG TAB PO PRN (21:21)
[2018-06-21] MEDS: HEPARIN 5,000 UNIT/0.5 ML INJ SC SCH ×3 (05:49→20:30)
--- NOTE | 2018-06-21 07:49 | SOAPPROG ---
SOAP Progress Note Assessment/Plan: POD #4: urgent CABGx2 (MCGEE-LAD, SVG-ramus), AtriClip MICHA, EVH L thigh Severe LM CAD s/p CABGx2 - ASA for secondary prevention; not interested in statin - agreed to d/w linseed oil temperer at later time - BB on hold by EP for bradycardia Post-op ileus, improved -advance to soft diet and if tolerates --> cardiac -counseled on s/s of worsening ileus including ab pain, distension, n/v -no narcotics Post-op atrial fibrillation -intermittent episodesx2 that spontaneously resolved, MICHA excluded - monitor -avoid antiarrhythmic/BB -if recurrent, consider DOAC Acute post-op blood loss anemia - Stable w/o the need for transfusion Pre-op bradycardia - LINQ per Dr. Trujillo DVT prophylaxis - SCDs/heparin SQ PTOT - rec home w o/p rehab Dispo: -anticipate dc Saturday -RA oxygen reading -poss TCPW remove today -advance to soft diet then cardiac if tolerates Subjective: + gas. Feels less distended. No abd pain. No BM yet Objective: Vital Signs Temp Pulse Resp BP Pulse Ox 36.7 C 85 14 127/78 H 95 06/21/18 04:00 06/21/18 04:00 06/21/18 04:00 06/21/18 00:00 06/21/18 04:00 Laboratory Results 06/19/18 06:50 06/20/18 08:50 06/20/18 06/21/18 06/22/18 05:59 05:59 05:59 Intake Total 1070 1780 Output Total 1120 1850 Balance -50 -70 PT 14.0 SEC (12.0-15.0) 06/16/18 06:45 INR 1.12 (0.83-1.16) 06/16/18 06:45 - Physical Exam General Appearance: WD/WN, alert EENT: No scleral icterus (R), No scleral icterus (L) Neck: normal inspection Respiratory: RA oxygen, no wheezes Cardiac/Chest: regular rate, rhythm 90's Abdomen: non-tender, soft, mildly distended Skin: normal color, warm/dry Extremities: trace pedal edema Neuro/Psych: no motor/sensory deficits, alert, normal mood/affect, oriented x 3 ICD10 Worksheet Patient Problems: Problems Problem Status Onset Acute blood loss as cause of postoperative anemia Acute Left main coronary artery disease Acute S/P CABG x 2 Acute S/P left atrial appendage ligation Acute
[2018-06-21] MEDS ORDERED: OMEGA-3 FATTY ACIDS 1,000 MG CAP PO SCH (09:00)
[2018-06-21] MEDS ORDERED: CYANO/VITAMIN B12 1000 MCG TAB PO SCH (09:00)
[2018-06-21] MEDS ORDERED: CHOLECALCIFEROL VIT D3 1,000 UNITS TAB PO SCH (09:00)
[2018-06-21] MEDS: ASPIRIN 81 MG CHEWABLE TAB PO SCH (10:24)
[2018-06-21] MEDS: PANTOPRAZOLE SODIUM 40 MG TAB PO SCH (10:25)
[2018-06-21] MEDS: SENNOSIDES/DOCUSATE SODIUM TAB PO SCH ×2 (10:25→20:31)
[2018-06-21] MEDS: POLYETHYLENE GLYCOL 3350 17 GM PKT PO SCH (11:45)
[2018-06-21] MEDS ORDERED: NIACIN 500 MG TAB PO SCH (21:00)
[2018-06-22] MEDS: ACETAMINOPHEN 325 MG TAB PO PRN ×2 (01:23→04:57)
[2018-06-22] MEDS: HEPARIN 5,000 UNIT/0.5 ML INJ SC SCH (04:56)
[2018-06-22] MEDS: SENNOSIDES/DOCUSATE SODIUM TAB PO SCH (08:20)
[2018-06-22] MEDS: PANTOPRAZOLE SODIUM 40 MG TAB PO SCH (08:21)
[2018-06-22] MEDS: POLYETHYLENE GLYCOL 3350 17 GM PKT PO SCH (08:21)
[2018-06-22] MEDS: ASPIRIN 81 MG CHEWABLE TAB PO SCH (08:21)
--- NOTE | 2018-06-22 10:04 | SOAPPROG ---
SOAP Progress Note Assessment/Plan: POD #5: urgent CABGx2 (MCGEE-LAD, SVG-ramus), AtriClip MICHA, EVH L thigh Severe LM CAD s/p CABGx2 - ASA for secondary prevention; not interested in statin - agreed to d/w billing control clerk at later time - BB on hold by EP for bradycardia Post-op ileus, improved -+ BM -counseled on s/s of worsening ileus including ab pain, distension, n/v -no narcotics Post-op atrial fibrillation -intermittent episodesx2 that spontaneously resolved, MICHA excluded - monitor -avoid antiarrhythmic/BB -if recurrent, consider DOAC Acute post-op blood loss anemia - Stable w/o the need for transfusion Pre-op bradycardia - LINQ per Dr. Trujillo DVT prophylaxis - SCDs/heparin SQ PTOT - rec home w o/p rehab Dispo: -discharge today w home oxygen Subjective: Ready for home Objective: Vital Signs Temp Pulse Resp BP Pulse Ox 36.6 C 91 20 107/73 96 06/22/18 07:11 06/22/18 07:11 06/22/18 07:11 06/22/18 07:11 06/22/18 07:11 Laboratory Results 06/19/18 06:50 06/20/18 08:50 06/21/18 06/22/18 06/23/18 05:59 05:59 05:59 Intake Total 1780 1050 Output Total 1850 300 Balance -70 750 PT 14.0 SEC (12.0-15.0) 06/16/18 06:45 INR 1.12 (0.83-1.16) 06/16/18 06:45 - Physical Exam General Appearance: WD/WN, alert EENT: No scleral icterus (R), No scleral icterus (L) Neck: normal inspection Respiratory: Rno wheezes Cardiac/Chest: regular rate, rhythm Abdomen: non-tender, soft, mildly distended Skin: normal color, warm/dry Extremities: trace pedal edema Neuro/Psych: no motor/sensory deficits, alert, normal mood/affect, oriented x 3 ICD10 Worksheet Patient Problems: Problems Problem Status Onset Acute blood loss as cause of postoperative anemia Acute Left main coronary artery disease Acute S/P CABG x 2 Acute S/P left atrial appendage ligation Acute
--- NOTE | 2018-06-22 10:05 | PDDCSUM ---
Discharge Summary Discharge Summary: DATE OF ADMISSION: 06/16/18 DATE OF DISCHARGE: 06/22/18 DISPOSITION: Home with oxygen ACTIVITY: Instructed on sternal precautions, activity restrictions, and problems to call [employer]. ADMISSION DIAGNOSES: Severe, symptomatic coronary artery disease including flow limiting distal LM disease Recent unilateral edema/swelling associated with immobility concerning for LLE DVT Hypertension Hyperlipidemia DISCHARGE DIAGNOSES: As above, plus Postoperative ileus Postoperative atrial fibrillation Acute blood loss anemia Bradycardia of unknown significance (vasovagal vs. arrhythmogenic) PROCEDURES PERFORMED: 06/16/18 ([facility]) LHC 06/16/18 US LLE negative for DVT 06/17/18 ([facility]) CABGx2 (MCGEE-LAD, SVG-ramus), AtriClip MICHA, EVH 06/19/18 (Ronnie) Implant cardiac loop recorder (LINQ) HISTORY OF PRESENT ILLNESS: This is a 72M who underwent elective LHC with Dr. Nevarez demonstrating flow limiting LM disease. He has been having worsening SOB at rest the past few weeks. Associated symptoms include fatigue and malaise. No over chest pain. He had a recent 3-week automobile trip where he developed unilateral ankle edema and pain. This has since resolved. No chest or vein surgery. HOSPITAL COURSE BY PROBLEM LIST: Severe LM CAD s/p CABGx2 - routine post-op course. Pre-op EF 55-60% w mild LVH and no valve disease. Beta magdalena was held by EP due to bradycardia. Baby aspirin restarted. He is not interested in statin at this time, however, he agreed to discuss with Cardiology at a later date. Post-op ileus - started POD 2-3 w distension. No abdominal pain, N/V. Tolerated clears. Nonessential medications removed for bowel rest. Will continue to hold supplements at discharge until clinic visit. Post-op atrial fibrillation - 2x transient episodes <1 hr. MICHA excluded. BB/ Amiodarone not started due to pre-op bradycardia. [id number] score 2. Anticoagulation deferred except for ASA. Acute post-op blood loss anemia - Stable w/o the need for transfusion. Pre-op bradycardia - ~15 seconds at sternotomy. No history of arrhythmias. BB and amiodarone not given as a result. LINQ per Dr. Trujillo. No further episodes of bradycardia post-op. PERTINENT DISCHARGE CLINICAL INFORMATION: Sternotomy CDI, EVH CDI Abdomen - mildly distended, + BS, nontender HR BP SpO2 preop wt 115 kg, discharge wt 113 kg WBC 14.24 Hgb 13.8 Hct 41.4 Plt 117 Na 135 K 3.9 Cr 0.8 CONSULTANTS: [facility], [facility], [facility] MEDICATIONS ON ADMISSION: ASA/VitD3/VitB12/Niacin/Fish Oil ALLERGIES/SENSITIVITIES: Iodine DISCHARGE MEDICATIONS: CONTINUE these medications: ASA STOP these medications: VitD3/VitB12/Niacin/Fish Oil (held for bowel rest) NEW medications: Tylenol PRN, Miralax daily & Senna BID (until consistent BM) FOLLOW UP APPOINTMENTS: Device check [facility] 06/30/18 at 1pm CV surgery: with at [facility] on 07/01 @ 10:30AM. Cardiology ([facility]), as directed. Statin therapy to be discussed at that time. PCP, as directed FOLLOW UP TESTING: CXR prior to surgical appointment.
--- NOTE | 2018-06-22 10:10 | PDHOMEO2F ---
Home Oxygen Face to Face Home Orders: I certify that a physician or a nurse practitioner or physician's nutrition assistant has had a [id number] encounter with this patient on the date of this order due to the diagnosis listed, which relates to the primary reason the patient requires home oxygen. Alternative treatments have been tried, or considered, and deemed ineffective. It is anticipated that supplemental oxygen will result in improvement with treatment. Home oxygen qualifying diagnosis: ischemic heart disease, pulmonary insufficiency SpO2 on room air (%): 86 Frequency of home oxygen needed: continuous Home oxygen liters per minute: 1 Home oxygen delivery device: nasal cannula Concentrator: Yes E-tanks for mobility and back up: Yes If ordering portable O2, is the patient mobile in the home?: Yes I certify that, based on these findings, the home oxygen is medically necessary for this patient for the following length of time. Length of time home oxygen needed: 1 month
[2018-06-22 11:18] VITALS: BP 133/77
--- NOTE | 2018-06-22 11:24 | ASMTDCNOTE ---
Case Management Discharge Discharge Order Complete? Answers: Yes Patient to Obtain Answers: via Family Medications Transportation Arranged Answers: Family/Friends Discharge Comments Notes: CM spoke with RN, Pt is being discharged independently with home O2 and will follow-up with outpatient rehab. No other needs identified. Family to transport. Date Signed: 06/22/2018 11:23 AM Electronically Signed By:HARJINDER Romero
--- NOTE | 2018-06-22 11:24 | ASMTLACE ---
LACE Length of stay for Answers: 4-6 days current admission Acuity / Level of Answers: Yes Care: Did the patient have an inpatient admission? Comorbidities - select Answers: Coronary Artery Disease all that apply # of Emergency department Answers: 0 visits in the last 6 months Score: 9 Date Signed: 06/22/2018 11:23 AM Electronically Signed By:HARJINDER Romero
--- NOTE | 2018-06-22 11:27 | ASDISCHSUM ---
Discharge Information Plan Status:Home with No Needs Medically Cleared to Leave:06/22/2018 Discharge Date:06/22/2018 CM D/C Disposition:Home, Routine, Self-Care ADT D/C Disposition:Home, Routine, Self-Care Projected Discharge Date:06/22/2018 Transportation at D/C:Family Discharge Delay Reason: Follow-Up Date:06/22/2018 Discharge Slot: Final Diagnosis: Placement Information Patient Contact Information Contact Name:CHIDI Relationship: Address:[address] City:[place] Alternate Phone: [facility]/Zip Code:[place] [address] Email: Financial Information Financial Class:Medicare Advantage Plans Primary Plan Desc:[facility] PL[facility] Primary Plan Number:[id number] Secondary Plan Desc: Secondary Plan Number: Assessment Information LACE LACE Length of stay for Answers: 4-6 days current admission Acuity / Level of Answers: Yes Care: Did the patient have an inpatient admission? Comorbidities - select Answers: Coronary Artery Disease all that apply # of Emergency department Answers: 0 visits in the last 6 months Score: 9 Date Signed: 06/22/2018 11:23 AM Electronically Signed By:HARJINDER Romero [facility] CM Progress Note CM Note CM Note Notes: Pt is a 72 y/o man that underwent a CABG x2. PT has cleared pt to d/c home with outpatient rehab follow up. Pt will most likely d/c without any needs. CM to follow direction and recommendations of Dr. Terry's team. CM available for changes. Plan: Independent Date Signed: 06/18/2018 01:09 PM Electronically Signed By:HARJINDER Perkins [facility] KARLENE Progress Note CM Note CM Note Notes: 06/20/2018 Case Management Note Discussed w/RN and reviewed chart. PT note indicates cardiac outpatient rehab. Anticipating Saturday discharge. Case Management d/c poc: independent with follow up as directed. Case Management available if needs change. Date Signed: 06/20/2018 12:32 PM Electronically Signed By:Aparna Trinidad RN Case Management Discharge Plan Note Case Management Discharge Discharge Order Complete? Answers: Yes Patient to Obtain Answers: via Family Medications Transportation Arranged Answers: Family/Friends Discharge Comments Notes: CM spoke with RN, Pt is being discharged independently with home O2 and will follow-up with outpatient rehab. No other needs identified. Family to transport. Date Signed: 06/22/2018 11:23 AM Electronically Signed By:HARJINDER Romero Intervention Information
== END 2018-06-22 13:47 | disposition home or self-care (01) | DRG 234 ==
LOC: FCATH 06:16 → F2W 13:45 → F2N 06-17 11:29 → F2W 06-18 12:20
PROVIDERS: ADMIT Internal Medicine Cardiovascular Disease; ATTEND Thoracic Surgery (Cardiothoracic Vascular Surgery)
PROC: B2151ZZ Fluoroscopy of Left Heart using Low Osmolar Contrast (ICD-10-PCS; 2018-06-16)
PROC: 4A033BC Measurement of Arterial Pressure, Coronary, Percutaneous Approach (ICD-10-PCS; 2018-06-16)
PROC: B2111ZZ Fluoroscopy of Multiple Coronary Arteries using Low Osmolar Contrast (ICD-10-PCS; 2018-06-16)
PROC: 4A023N7 Measurement of Cardiac Sampling and Pressure, Left Heart, Percutaneous Approach (ICD-10-PCS; 2018-06-16)
PROC: 02100A9 Bypass Coronary Artery, One Artery from Left Internal Mammary with Autologous Arterial Tissue, Open Approach (ICD-10-PCS; principal; 2018-06-17 12:00)
PROC: 06BQ4ZZ Excision of Left Saphenous Vein, Percutaneous Endoscopic Approach (ICD-10-PCS; principal; 2018-06-17 12:00)
PROC: 5A1221Z Performance of Cardiac Output, Continuous (ICD-10-PCS; principal; 2018-06-17 12:00)
PROC: 02L70CK Occlusion of Left Atrial Appendage with Extraluminal Device, Open Approach (ICD-10-PCS; principal; 2018-06-17 12:00)
PROC: 021009W Bypass Coronary Artery, One Artery from Aorta with Autologous Venous Tissue, Open Approach (ICD-10-PCS; principal; 2018-06-17 12:00)
PROC: 0JH602Z Insertion of Monitoring Device into Chest Subcutaneous Tissue and Fascia, Open Approach (ICD-10-PCS; 2018-06-19)
DX: I25.118 Atherosclerotic heart disease of native coronary artery with other forms of angina pectoris (principal); K91.89 Other postprocedural complications and disorders of digestive system; K56.0 Paralytic ileus; D62 Acute posthemorrhagic anemia; I97.89 Other postprocedural complications and disorders of the circulatory system, not elsewhere classified; I48.0 Paroxysmal atrial fibrillation; L76.32 Postprocedural hematoma of skin and subcutaneous tissue following other procedure; R00.1 Bradycardia, unspecified; I45.9 Conduction disorder, unspecified; E66.09 Other obesity due to excess calories; Z68.31 Body mass index [BMI] 31.0-31.9, adult; I10 Essential (primary) hypertension; E78.5 Hyperlipidemia, unspecified; Z82.49 Family history of ischemic heart disease and other diseases of the circulatory system
CPT/HCPCS: 82435-PO; 82565-PO; 82947-PO; 83605-ER; 84132-PO; 84295-PO; 84520-PO; 85014-ER; 97116-GP; 97161-GP; 97165-GO; 97530-GP; 97535-GO; C1769; C1887; J0153; J0171; J0282; J0330; J0690; J1200; J1265; J1644; J1815; J1940; J2001; J2150; J2250; J2260; J2270; J2370; J2405; J2440; J2704; J2720; J2930; J3010; J3475; P9041; Q9967

== ENCOUNTER → 2018-07-01 | Outpatient (CLI) | payer OTHER | LOC: FIMAGING 08:47 | PROVIDERS: ATTEND Thoracic Surgery (Cardiothoracic Vascular Surgery) | DX: Z98.890 Other specified postprocedural states (principal); Z95.1 Presence of aortocoronary bypass graft ==